=== PATIENT | male | born 1980 | race Two or more races ===

== ENCOUNTER 2023-03-21 10:53 | Inpatient (IN) | payer OTHER ==
[~2023-03-21] VITALS: Ht 177.8 cm; Wt 95.3 kg
--- NOTE | 2023-03-21 10:55 | NUR ---
RECEIVED PT 42YRS MALE FROM HOME BY MIKE C/O LISANDRO AND PAIN ON LT FOOT OPEN WOUND UNHEALING
--- NOTE | 2023-03-21 11:25 | NUR ---
BLOOD DROW BY LAB TACH
[2023-03-21] MEDS ORDERED: ONDANSETRON HCL/PF 4 MG/2 ML VIAL ONE (11:26)
[2023-03-21] MEDS ORDERED: MORPHINE SULFATE INJ 4 MG/ML DISP.SYRIN ONE (11:27)
[2023-03-21] MEDS ORDERED: ONDANSETRON HCL/PF 4 MG/2 ML VIAL IV ONE (11:30)
[2023-03-21] MEDS ORDERED: IV NS 0.9% 1,000 ML BAG IV ONE (11:30)
[2023-03-21] MEDS ORDERED: MORPHINE SULFATE INJ 2 MG/ML DISP.SYRIN IV ONE (11:30)
--- NOTE | 2023-03-21 11:30 | NUR ---
INSERTED ANGO CATHETER G 18 ON LT AC GABRIELA CAMP SENT TO LAB
--- NOTE | 2023-03-21 11:54 | NUR ---
CRTTS KAYLEE [phone]
--- NOTE | 2023-03-21 12:03 | NUR ---
[facility]
--- NOTE | 2023-03-21 12:04 | NUR ---
[facility]
[2023-03-21 12:15] LABS: BASOPHILS % (AUTO) 0.1 % (0.0-2.0); EOSINOPHILS % (AUTO) 0.4 % (0.0-6.0); HEMATOCRIT 41 % (39-51); HEMOGLOBIN 13.8 g/dL (13.5-17.5); LYMPHOCYTES # (AUTO) 1.2 K/uL (0.8-4.8); MEAN CORPUSCULAR HGB CONC 34 g/dl (31.0-36.0); MEAN CORPUSCULAR VOLUME 86 fL (80-96); MONOCYTES # (AUTO) 1.1 K/uL (0.1-1.30); MONOCYTES % (AUTO) 8.9 % (2.0-12.0); NEUTROPHILS % (AUTO) 80.6 % (43.0-81.0); PLATELET COUNT (AUTO) 252 K/uL (150-450); WHITE BLOOD COUNT (AUTO) 12.4 K/uL (4.3-11.0)
[2023-03-21 12:21] LABS: CALCIUM, SERUM 8.8 mg/dL (8.5-10.1); CREATININE 1.1 mg/dL (0.6-1.3); POTASSIUM 3.5 mmol/L (3.5-5.1)
[2023-03-21 12:26] LABS: C-REACTIVE PROTEIN 17.4 mg/dL (0.0-0.9)
--- NOTE | 2023-03-21 12:42 | NUR ---
PT SURGEON DR. ЕЛЕНА ONTIVEROS [phone]
--- NOTE | 2023-03-21 13:30 | NUR ---
RESTING AND ASLEEPY NO SOB WATING FOR ROOM TO BE ADMIT
--- NOTE | 2023-03-21 16:22 | NUR ---
CALLED NURSING SUP REGARDING PT BED
[2023-03-21] MEDS ORDERED: VANCOMYCIN 1 GM in IV D5W 250 ML IV ONE (16:30)
[2023-03-21] MEDS ORDERED: PIPERACILLIN /TAZOBACTAM 3.375 G in IV D5W 50 ML IV ONE (16:30)
[2023-03-21] MEDS ORDERED: Z GUARD REMEDY 4 OZ OINT TP PRN (17:30)
[2023-03-21] MEDS ORDERED: ACETAMINOPHEN 325 MG TABLET PO PRN (17:30)
[2023-03-21] MEDS ORDERED: MAGNESIUM HYDROXIDE 30 ML UDC PO PRN (17:30)
[2023-03-21] MEDS ORDERED: ONDANSETRON HCL/PF 4 MG/2 ML VIAL IVP PRN (17:30)
[2023-03-21] MEDS ORDERED: MAG HYDROX/AL HYDROX/SIMETH 30 ML UDC PO PRN (17:30)
--- NOTE | 2023-03-21 17:30 | NUR ---
Vin TO BED 12
[2023-03-21] MEDS ORDERED: PANTOPRAZOLE 40 MG TABLET.DR PO ONE (17:45)
[2023-03-21] MEDS: PANTOPRAZOLE 40 MG TABLET.DR PO SCH (17:46)
--- NOTE | 2023-03-21 17:58 | NUR ---
HAND OFF JOHNY FONTENOT
--- NOTE | 2023-03-21 20:26 | NUR ---
report given to evgeny for handoff report.
[2023-03-21 20:30] VITALS: BP 139/85
[2023-03-21 21:25] VITALS: BP 139/45
--- NOTE | 2023-03-21 21:40 | NUR ---
MS RN ADMITTING NOTE PATIENT WAS TRANSFERRED FROM ER TO [facility] - 2 AT 2126H; PATIENT IS A/O X 4, ABLE TO MAKE NEEDS KNOWN; STABLE ON ROOM AIR, BREATHING EVENLY AND NO S/S OF DISTRESS NOTED; WITH IV ACCESS AT LAC G#18 SALINE LOCK; ORIENTED TO STAFF AND ROOM; VITAL SIGNS TAKEN AND RECORDED; SKIN ASSESSMENT WAS DONE AND NOTED CELLULITIS ON LEFT LOWER EXTREMITY AND PRESENCE OF MULTIPLE WOUNDS IN RIGHT LEG AND HAND, PHOTOGRAPHED AND INSERTED INTO CHART; ENCOURAGED VERBALIZATION OF NEEDS; SAFETY MEASURES IMPLEMENTED, BED IN LOW AND LOCKED POSITION, SIDE RAILS UP X 2, CALL LIGHT AND TABLE WITHIN REACH; WILL CONTINUE TO MONITOR THROUGHOUT SHIFT
[2023-03-21] MEDS: IV 1/2NS 1000 ML 1,000 ML IV PRN (22:00)
[2023-03-21] MEDS: VANCOMYCIN 1 GM in IV D5W 250 ML IV SCH (23:47)
[2023-03-22 05:54] LABS: BASOPHILS % (AUTO) 0.2 % (0.0-2.0); EOSINOPHILS % (AUTO) 0.2 % (0.0-6.0); HEMATOCRIT 39 % (39-51); HEMOGLOBIN 12.8 g/dL (13.5-17.5); LYMPHOCYTES # (AUTO) 1.7 K/uL (0.8-4.8); LYMPHOCYTES % (AUTO) 15.4 % (20.0-44.0); MEAN CORPUSCULAR HGB CONC 33 g/dl (31.0-36.0); MEAN CORPUSCULAR VOLUME 90 fL (80-96); MONOCYTES # (AUTO) 1.1 K/uL (0.1-1.30); NEUTROPHILS % (AUTO) 74.2 % (43.0-81.0); PLATELET COUNT (AUTO) 222 K/uL (150-450); RED BLOOD CELL COUNT(AUTO) 4.34 MIL/uL (4.5-6.0); WHITE BLOOD COUNT (AUTO) 10.8 K/uL (4.3-11.0)
[2023-03-22] MEDS: HYDROCODONE/APAP 5/325MG TABLET PO PRN ×3 (06:13→20:04)
[2023-03-22 06:20] LABS: CALCIUM, SERUM 8.5 mg/dL (8.5-10.1); PHOSPHORUS 2.2 mg/dL (2.5-4.9); POTASSIUM 3.4 mmol/L (3.5-5.1)
--- NOTE | 2023-03-22 06:58 | NUR ---
MS RN CLOSING NOTE PATIENT IS A/O X 4, ABLE TO MAKE NEEDS KNOWN; STABLE ON ROOM AIR, BREATHING EVENLY AND NO S/S OF DISTRESS NOTED; WITH IV ACCESS AT LAC G#18 RUNNING WITH 1/2 NORMAL SALINE AT 75 ML/HR; ADMINISTERED MEDICATIONS PRESCRIBED; PATIENT'S NEEDS ATTENDED; MONITORED PATIENT ACCORDINGLY; WOUND CARE CONSULT ORDERED FOR PRESENCE OF LEFT LOWER EXTREMITY CELLULITIS AND WOUND; SAFETY MEASURES IMPLEMENTED, BED IN LOW AND LOCKED POSITION, SIDE RAILS UP X 2, CALL LIGHT AND TABLE WITHIN REACH; WILL ENDORSE TO AM NURSE FOR MARK.
[2023-03-22 07:00] VITALS: BP 135/75
--- NOTE | 2023-03-22 07:40 | NUR ---
MS RN OPENING NOTE RECEIVED PATIENT IN BED, AWAKE, A/O X 4, ABLE TO MAKE NEEDS KNOWN; STABLE ON ROOM AIR, BREATHING EVEN AND NO S/S OF DISTRESS NOTED; WITH IV ACCESS AT LAC G#18 RUNNING WITH 1/2 NORMAL SALINE AT 75 ML/HR. MONITORED PATIENT ACCORDINGLY. SAFETY MEASURE IN PLACE; BED LOCKED AND LOWEST POSITION, SIDE RAILS UP X2 CALL LIGHT AND BEDSIDE TABLE WITHIN PATIENT REACH. WILL CONTINUE TO MONITOR PATIENT.
[2023-03-22] MEDS: VANCOMYCIN 1 GM in IV D5W 250 ML IV SCH ×2 (07:56→15:04)
[2023-03-22] MEDS ORDERED: HYDR-3972 PO (09:57)
--- NOTE | 2023-03-22 10:14 | NUR ---
WOUND CARE CONSULT: PT PRESENTS WITH LEFT ANKLE OPEN WOUND WITH SURROUNDING ERYTHEMA AND SWELLING, PRESENT ON ADMISSION. ORTHO P.A. HERE TO SEE PT. DISCUSSED WOUND CARE RECOMMENDATIONS WITH P.A. AND NURSING STAFF. IN AGREEMENT WITH PLAN OF CARE.
[2023-03-22] MEDS ORDERED: POTASSIUM CHLORIDE 20 MEQ TAB.PRT.SR PO SCH (12:00)
[2023-03-22] MEDS: IV 1/2NS 1000 ML 1,000 ML IV PRN (13:05)
[2023-03-22 16:00] VITALS: BP 117/69
[2023-03-22] MEDS ORDERED: K PHOS NEUTRAL 250 MG TABLET PO ONE (16:00)
--- NOTE | 2023-03-22 18:40 | NUR ---
MS RN CLOSING NOTE PATIENT IS A/O X 4, ABLE TO MAKE NEEDS KNOWN; STABLE ON ROOM AIR, BREATHING EVEN AND NO S/S OF DISTRESS NOTED. IV ACCESS AT LAC G#18 RUNNING WITH 1/2 NORMAL SALINE AT 75 ML/HR; ADMINISTERED MEDICATIONS PRESCRIBED. REQUESTED MEDICAL RECORD FROM [facility], RECORDS IN HIS CHART. PATIENT'S NEEDS ATTENDED; KEPT PT C/D/I. SAFETY MEASURES IMPLEMENTED, BED IN LOW AND LOCKED POSITION, SIDE RAILS UP X 2, CALL LIGHT AND TABLE WITHIN REACH, WILL ENDORSE TO ONCOMING NURSE FOR MARK.
--- NOTE | 2023-03-22 19:30 | NUR ---
MS RN OPENING NOTE PATIENT IS A/O X 4, ABLE TO MAKE NEEDS KNOWN; STABLE ON ROOM AIR, BREATHING EVENLY AND NO S/S OF DISTRESS NOTED; WITH IV ACCESS AT LAC G#18 RUNNING WITH 1/2 NORMAL SALINE AT 75 ML/HR; ENCOURAGED VERBALIZATION OF NEEDS; SAFETY MEASURES IMPLEMENTED, BED IN LOW AND LOCKED POSITION, SIDE RAILS UP X 2, CALL LIGHT AND TABLE WITHIN REACH; WILL CONTINUE TO MONITOR THROUGHOUT SHIFT
[2023-03-22 20:00] VITALS: BP_SYST 129; BP_SYST 142; BP_DIAS 78; BP_DIAS 80
[2023-03-23] MEDS: VANCOMYCIN 1 GM in IV D5W 250 ML IV SCH ×2 (00:17→08:07)
[2023-03-23] MEDS: IV 1/2NS 1000 ML 1,000 ML IV PRN (04:19)
[2023-03-23 07:00] VITALS: BP 124/77
[2023-03-23 07:19] LABS: CALCIUM, SERUM 8.8 mg/dL (8.5-10.1); CREATININE 0.9 mg/dL (0.6-1.3); POTASSIUM 3.2 mmol/L (3.5-5.1)
--- NOTE | 2023-03-23 07:20 | NUR ---
MS RN CLOSING NOTE PATIENT IS A/O X 4, ABLE TO MAKE NEEDS KNOWN; STABLE ON ROOM AIR, BREATHING EVENLY AND NO S/S OF DISTRESS NOTED; WITH IV ACCESS AT LAC G#18 RUNNING WITH 1/2 NORMAL SALINE AT 75 ML/HR; ADMINISTERED MEDICATIONS PRESCRIBED; PATIENT'S NEEDS ATTENDED; MONITORED PATIENT ACCORDINGLY; WOUND CARE DONE; SAFETY MEASURES IMPLEMENTED, BED IN LOW AND LOCKED POSITION, SIDE RAILS UP X 2, CALL LIGHT AND TABLE WITHIN REACH; ENDORSED TO AM SHIFT NURSE FOR MARK.
--- NOTE | 2023-03-23 07:25 | NUR ---
MS RN OPENING NOTE PATIENT IS A/O X 4, ABLE TO MAKE NEEDS KNOWN; STABLE ON ROOM AIR, ROOM AIR WITH NO SOB OR DISTRESS NOTED; NO C/O OF PAIN AND DISCOMFORT WITH IV ACCESS AT LAC G#18 RUNNING WITH 1/2 NORMAL SALINE AT 75 ML/HR; SAFETY MEASURES IMPLEMENTED, BED IN LOW AND LOCKED POSITION, SIDE RAILS UP X 2, CALL LIGHT AND TABLE WITHIN REACH; WILL CONTINUE TO MONITOR FOR ANY CHANGES ,.
[2023-03-23] MEDS: PANTOPRAZOLE 40 MG TABLET.DR PO SCH (08:06)
[2023-03-23] MEDS: POTASSIUM CHLORIDE 20 MEQ TAB.PRT.SR PO SCH ×2 (10:06→11:09)
[2023-03-23] MEDS: VANCOMYCIN 1.25 GM in IV D5W 250 ML IV SCH ×2 (12:27→20:31)
[2023-03-23] MEDS: HYDROCODONE/APAP 5/325MG TABLET PO PRN (15:18)
[2023-03-23 16:00] VITALS: BP 126/70
--- NOTE | 2023-03-23 19:00 | NUR ---
RN OPENING NOTE RECEIVED PT ASLEEP IN BED. PT IS A/OX4, ABLE TO MAKE NEEDS KNOWN. PT IS IN RA, TOLERATING WELL, BREATHING EVEN AND UNLABORED @ THIS TIME. PT IV PRESENT ON LEFT AC #20G RUNNING 0.45% NS @ 75MLS/HR, PATENT, INTACT AND FLUSHES WELL WITH NO S &SX OF INFILTRATION @ SITE NOTED. SAFETY MEASURE IN PLACE. BED IN LOWEST AND LOCKED POSITION. SIDE RAILS X 2. BEDSIDE TABLE AND CALL LIGHT IS EASY REACH. BED ALARM IS ON. WILL MONITOR PT ACCORDINGLY.
--- NOTE | 2023-03-23 19:46 | NUR ---
MS RN CLOSING NOTE PATIENT IS A/O X 4, ABLE TO MAKE NEEDS KNOWN; STABLE ON ROOM AIR, ROOM AIR WITH NO SOB OR DISTRESS NOTED; C/O OF PAIN AND DISCOMFORT AND NORCO GIVEN AND WITH HELP , WITH IV ACCESS AT LAC G#18 RUNNING WITH 1/2 NORMAL SALINE AT 75 ML/HR; ALL DUE MEDS ORDERED GIVEN , IV ATB GIVEN , SEEN BY PT AND ABLE TO AMBULATE WITH FWW, SAFETY MEASURES IMPLEMENTED, BED IN LOW AND LOCKED POSITION, SIDE RAILS UP X 2, CALL LIGHT AND TABLE WITHIN REACH, ENDORSED TO NEXT SHIFT
[2023-03-23 20:00] VITALS: BP 123/75
[2023-03-23] MEDS ORDERED: CEFEPIME 2 GM in IV D5W 100 ML IV ONE (23:00)
[2023-03-24] MEDS ORDERED: CEFEPIME 1 GM VIAL ONE (00:32)
[2023-03-24] MEDS: VANCOMYCIN 1.25 GM in IV D5W 250 ML IV SCH ×2 (04:03→14:24)
--- NOTE | 2023-03-24 06:42 | NUR ---
RN CLOSING NOTE PT IS AWAKE & RESTING COMFORTABLY IN BED. PT IS A/OX4,RESPONSIVE AND FOLLOWS VERBAL COMMAND. PT IS IN RA, W/ NO S & SX OF RESPIRATORY DISTRESS@ THIS TIME. PT IV PRESENT ON LEFT AC #20G RUNNING 0.45% NS @ 75MLS/HR, PATENT, INTACT AND FLUSHES WELL WITH NO S &SX OF INFILTRATION @ SITE NOTED. ADMINISTERED MEDICATION ACCORDINGLY PER MD'S ORDER. SAFETY MEASURE IN PLACE. BED IN LOWEST AND LOCKED POSITION. SIDE RAILS X 2. BEDSIDE TABLE AND CALL LIGHT IS EASY REACH. BED ALARM IS ON. WILL ENDORSE PT TO THE NEXT SHIFT FOR MARK.
[2023-03-24 06:54] LABS: CALCIUM, SERUM 9.1 mg/dL (8.5-10.1); CREATININE 0.9 mg/dL (0.6-1.3); POTASSIUM 3.6 mmol/L (3.5-5.1)
[2023-03-24 08:00] VITALS: BP 117/72
[2023-03-24] MEDS: PANTOPRAZOLE 40 MG TABLET.DR PO SCH (08:14)
[2023-03-24] MEDS: CEFEPIME 2 GM in IV D5W 100 ML IV SCH ×2 (12:21→20:53)
--- NOTE | 2023-03-24 14:24 | NUR ---
RN NOTES JUST GOT THE RESULT OF VANCO TROUGH AND RESULTED TO 6 AND VANCO IV GIVEN
[2023-03-24 16:17] VITALS: BP 128/77
[2023-03-24] MEDS: HYDROCODONE/APAP 5/325MG TABLET PO PRN ×2 (16:52→22:29)
--- NOTE | 2023-03-24 18:58 | NUR ---
MS RN CLOSING NOTE PATIENT IS A/O X 4, ABLE TO MAKE NEEDS KNOWN; STABLE ON ROOM AIR, ROOM AIR WITH NO SOB OR DISTRESS NOTED; C/O OF PAIN AND DISCOMFORT AND NORCO GIVEN WITH IV ACCESS AT LAC G#18 RUNNING WITH 1/2 NORMAL SALINE AT 75 ML/HR;ALL DUE MEDS ORDERED GIVEN , SAFETY MEASURES IMPLEMENTED, BED IN LOW AND LOCKED POSITION, SIDE RAILS UP X 2, CALL LIGHT AND TABLE WITHIN REACH; ENDORSED TO NEXT SHIFT DISCHARGE PLANNING AND CASE MANAGEMENT TO FIND PLACEMENT .
--- NOTE | 2023-03-24 19:00 | NUR ---
RN OPENING NOTE RECEIVED PT ASLEEP IN BED. PT IS A/O X 4, ABLE TO MAKE NEEDS KNOWN. PT IS IN RA, TOLERATING WELL, BREATHING EVEN AND UNLABORED @ THIS TIME.PT IV PRESENT IN LEFT AC #18G SALINE LOCK, PATENT, INTACT AND FLUSHES WELL W/ NO S & SX OF INFILTRATION @ THIS TIME. PT URINAL IS @ BEDSIDE W/ EASY REACH. SAFETY MEASURE IS IN PLACE. BED IN LOWEST AND LOCKED POSITION. SIDE RAILS X 2. BEDSIDE TABLE AND CALL LIGHT IS EASY REACH. BED ALARM IS ON. WILL CONTINUE TO MONITOR PT ACCORDINGLY.
[2023-03-24] MEDS: VANCOMYCIN 1.5 GM in IV D5W 500ml IV SCH (21:37)
[2023-03-25] VITALS: BP 127/70
[2023-03-25 01:21] VITALS: BP 120/75
[2023-03-25] MEDS: HYDROCODONE/APAP 5/325MG TABLET PO PRN ×3 (03:42→16:00)
[2023-03-25] MEDS: CEFEPIME 2 GM in IV D5W 100 ML IV SCH ×2 (04:02→12:14)
[2023-03-25] MEDS: VANCOMYCIN 1.5 GM in IV D5W 500ml IV SCH ×2 (04:53→13:35)
--- NOTE | 2023-03-25 06:36 | NUR ---
RN CLOSING NOTE PT IS ASLEEP AND RESTING COMFORTABLY IN BED. PT IS A/O X 4, RESPONSIVE AND FOLLOWS VERBAL COMMAND. PT IS IN RA, W/ NO S & SX OF RESPIRATORY DISTRESS @ THIS TIME.PT IV PRESENT IN LEFT AC #18G SALINE LOCK, PATENT, INTACT AND FLUSHES WELL W/ NO S & SX OF INFILTRATION @ THIS TIME. PT IS KEPT CLEAN AND DRY. ADMINISTERED MEDICATION ACCORDINGLY PER MD'S ORDER. SAFETY MEASURE IS IN PLACE. BED IN LOWEST AND LOCKED POSITION. SIDE RAILS X 2. BEDSIDE TABLE AND CALL LIGHT IS EASY REACH. BED ALARM IS ON. WILL ENDORSE PT TO THE NEXT SHIFT FOR MARK.
[2023-03-25 07:13] LABS: CALCIUM, SERUM 8.9 mg/dL (8.5-10.1); POTASSIUM 3.6 mmol/L (3.5-5.1)
--- NOTE | 2023-03-25 07:30 | NUR ---
RN- OPENING NOTES RECEIVED PATIENT ASLEEP IN BED, EASILY AROUSED, BREATHING EVEN AND NON LABORED WITH NO S/S OF DISTRESS. IV ON LEFT AC #18G SALINE LOCK IN PLACE, RUNNING 1/2 NS AT 75ML/HR. IV IS PATENT AND INTACT. SAFETY MEASURES IN PLACE: BED LOCKED IN LOWET POSITION, SIDE RAILS UP X2, BEDSIDE TABLE AND CALL LIGHT WITHIN REACH, BED ALARM SET. WILL CONTINUE WITH PLAN OF CARE INDICATED.
[2023-03-25] MEDS: PANTOPRAZOLE 40 MG TABLET.DR PO SCH (08:05)
[2023-03-25 08:39] VITALS: BP 119/78
[2023-03-25 12:00] VITALS: BP 114/79
[2023-03-25] MEDS: IV 1/2NS 1000 ML 1,000 ML IV PRN (12:19)
--- NOTE | 2023-03-25 13:20 | NUR ---
RN- NOTES LEFT UPPER ARM MIDLINE INSERTED, #18 G, 10CM. IV IS PATENT AND INTACT.
--- NOTE | 2023-03-25 13:25 | NUR ---
RN- NOTES LEFT ARM AC #18 G, SALINE LOCK IV DISCONTINUED, NO COMPLICATIONS NOTED. COVERED WITH DRY DRESSING.
[2023-03-25 16:12] VITALS: BP 124/77
--- NOTE | 2023-03-25 18:37 | NUR ---
RN- DISCHARGE NOTES PATIENT IS A/O X4, BREATHING EVEN AND NON LABORED WITH NO S/S OF DISTRESS. PATIENT TOLERATING RA. MIDLINE #18 G ON LEFT UPPER ARM NOT DISCONTINUED DUE TO CONTINUED IV ANTIBIOTICS AT [facility]. DISCHARGE ORDER AND MEDICATIONS RECONCILED WITH DR. KIRK. REPORT GIVEN TO PO DIAZ AT [facility]. ALL BELONGINGS TAKEN WITH PATIENT. ALL DISCHARGE PAPERWORK SIGNED. PATIENT LEFT THE UNIT AT 1837 VIA AMBULANCE ON A GURNEY.
== END 2023-03-25 18:37 | DRG 349 ==
LOC: ER 11:03 → MED 20:58
PROC: 05HF33Z Insertion of Infusion Device into Left Cephalic Vein, Percutaneous Approach (ICD-10-PCS; principal; 2023-03-25)
DX: T84.625A Infection and inflammatory reaction due to internal fixation device of left fibula, initial encounter (principal); E83.39 Other disorders of phosphorus metabolism; L03.116 Cellulitis of left lower limb; Y83.8 Other surgical procedures as the cause of abnormal reaction of the patient, or of later complication, without mention of misadventure at the time of the procedure; Y92.009 Unspecified place in unspecified non-institutional (private) residence as the place of occurrence of the external cause; E87.6 Hypokalemia; Z20.822 Contact with and (suspected) exposure to COVID-19; Z87.81 Personal history of (healed) traumatic fracture; F19.11 Other psychoactive substance abuse, in remission
CPT/HCPCS: 36415; 71045-TC; 73610-TC; 73700-TC; 80048-TC; 80202-TC; 83605-TC; 83735-TC; 84100-TC; 85025-TC; 85652-TC; 85730-TC; 86140-TC; 86803; 86850-TC; 87040-TC; 87081-TC; 87536; 87806; 97112-TC; 97116-TC; 97530-TC; A4223; C9803; G0378; G0480; J0692; J2270; J2405; J2543; J3370; J3490; J7030; J7040; J7060